=== PATIENT | female | born 1965 | race Caucasian/White ===

== ENCOUNTER 2016-09-10 18:49 | Emergency (ER) | payer OTHER ==
[~2016-09-10 18:49] MED LIST: FOLI5CAP PO; METH2.5 PO; MMW SWISH-SPIT; NAPR220T9 PO
[2016-09-10 19:02] VITALS: BP 124/82; PULSE 108; RESP 20; TEMP 98.8; O2SAT 97
[2016-09-10] MEDS ORDERED: METH2.5T PO (19:15)
[2016-09-10] MEDS ORDERED: FOLI5CAP PO (19:15)
[2016-09-10] MEDS ORDERED: NAPR250T PO (19:15)
--- NOTE | 2016-09-10 19:24 | PD ---
HPI Chief Complaint: Musculoskeletal Complaint Time Seen by Provider: 19:24 Travel History International Travel<30 days: No Contact w/Intl Traveler<30days: No Traveled to known affect area: No History of Present Illness HPI 51-year-old female presents the emergency Department with right knee pain, effusion, and "giving out" which has been progressive over the last several days. Patient denies any specific injury. Patient has a history of arthroscopy to that same knee approximately 13 years ago which he can't remember exactly why. Patient has a history of rheumatoid arthritis for which she takes methotrexate and Naprosyn. Patient denies numbness, tingling, or weakness in the right lower extremity. Patient states her pain is when at rest 4/10 but when walking 8-9/10. Her bigger concern is that it is giving out cannot trust it. Patient has allergies to Sabina, codeine, erythromycin, hydrocodone, and latex. PFSH Past Medical History Arthritis: Yes (RA) ?: Not Ovarian Cysts: Yes Past Surgical History Cholecystectomy: Yes Other Surgery: Yes (ovary removed) Social History Alcohol Use: No Tobacco Use: No Substance Use: No Allergies-Medications (Allergen,Severity, Reaction): Coded Allergies: Sabina (Verified Allergy, Mild, Rash, 09/10/16) Codeine (Verified Allergy, Mild, Rash, 09/10/16) Erythromycin (Verified Allergy, Mild, Rash, 09/10/16) Hydrocodone (Verified Allergy, Mild, Rash, 09/10/16) Latex (Verified Allergy, Mild, Rash, 09/10/16) Reported Meds & Prescriptions Reported Meds & Active Scripts Active Reported Folic Acid 5 Mg Cap 5 Mg PO DAILY Naproxen 250 Mg Tab 250 Mg PO BID Methotrexate 2.5 Mg Tab Unknown Dose PO Q7D Review of Systems Except as stated in HPI: all other systems reviewed are Neg General / Constitutional: No: Fever Eyes: No: Visual changes HENT: No: Headaches Cardiovascular: No: Chest Pain or Discomfort Respiratory: No: Shortness of Breath Gastrointestinal: No: Abdominal Pain Genitourinary: No: Dysuria Musculoskeletal: Positive: Arthralgias, Limited ROM, Pain (see history of present illness) Skin: No Rash Neurologic: No: Weakness Psychiatric: No: Depression Endocrine: No: Polydipsia Hematologic/Lymphatic: No: Easy Bruising Physical Exam Narrative GENERAL: Patient is a moderately obese female in no acute distress. SKIN: Warm and dry. Normal color. Normal turgor. HEAD: Atraumatic. Normocephalic. EYES: Pupils equal and round. No scleral icterus. No injection or drainage. ENT: No nasal bleeding or discharge. Mucous membranes pink and moist. Airways patent. NECK: Trachea midline. No JVD. Supple and nontender. CARDIOVASCULAR: Regular rate and rhythm. RESPIRATORY: No accessory muscle use. Clear to auscultation. Breath sounds equal bilaterally. . MUSCULOSKELETAL: Extremities without clubbing, cyanosis, or edema. No obvious deformities. Patient has tenderness with palpation along the anterior patella, extending down into the patellar tendon with palpable crepitus with flexion and extension of the knee. Patient has mild to moderate effusion noted. She does not seem to have significant laxity. Drawer test is negative. Elizabeth's is not able to be performed secondary to patient's discomfort. NEUROLOGICAL: Awake and alert. No obvious cranial nerve deficits. Motor grossly within normal limits. Five out of 5 muscle strength in the arms and legs. Normal speech. PSYCHIATRIC: Appropriate mood and affect; insight and judgment normal. Data Data Last Documented VS Vital Signs Date Time Temp Pulse Resp B/P Pulse Ox O2 Delivery O2 Flow Rate FiO2 09/10/16 19:02 98.8 108 20 124/82 97 Orders Tramadol (Ultram) (09/10/16 19:30) Splint Or Brace Apply/Monitor (09/10/16 19:26) Crutches (09/10/16 19:26) MDM Medical Decision Making Medical Screen Exam Complete: Yes Emergency Medical Condition: Yes Differential Diagnosis Right knee effusion. Possible cartilage tear. Right knee instability. Narrative Course Patient is felt to be medically stable at time of exam. Radiographic imaging not felt necessary based on the patient's history and physical. Patient is given tramadol 50 mg by mouth now. Patient is placed in a knee immobilizer and crutches. Patient will continue her methotrexate and Naprosyn 500 mg twice a day. Patient is to ice the area as much as possible and follow-up with orthopedist for further evaluation and treatment. Patient is given a prescription for tramadol 50 mg one every 6 hours when necessary pain #20. Patient can return to emergency Department with worsening symptoms if necessary. Diagnosis Primary Impression: Prepatellar effusion of right knee Referrals: Orthopedist call for appointment Patient Instructions: Crutch Instructions (ED), General Instructions, Knee Immobilizer (ED) Additional Instructions: Radiographic imaging not felt necessary based on the patient's history and physical. Patient is given tramadol 50 mg by mouth now. Patient is placed in a knee immobilizer and crutches. Patient will continue her methotrexate and Naprosyn 500 mg twice a day. Patient is to ice the area as much as possible and follow-up with orthopedist for further evaluation and treatment. Patient is given a prescription for tramadol 50 mg one every 6 hours when necessary pain #20. Patient can return to emergency Department with worsening symptoms if necessary. Med/Other Pt SpecificInfo: Prescription(s) given Disposition: 01 DISCHARGE HOME Condition: Stable Duc Pappas Sep 10, 2016 19:24
[2016-09-10] MEDS ORDERED: traMADol HCL 50 MG TAB PO ONE (19:30)
[2016-09-10] MEDS ORDERED: TRAM50TA PO (19:36)
[2016-09-10] MEDS ORDERED: NAPR500 PO (19:36)
== END 2016-09-10 20:26 | disposition home or self-care (01) ==
LOC: PHEFT 18:49
DX: M25.461 Effusion, right knee (principal)
CPT/HCPCS: 99283; E0113; L1830

== ENCOUNTER 2016-12-07 22:00 | Emergency (ER) | payer OTHER ==
[~2016-12-07] VITALS: Ht 172.7 cm; Wt 143.2 kg
[~2016-12-07 22:00] MED LIST changes: -METH2.5 PO; +METH2.5T PO; -MMW SWISH-SPIT; -NAPR220T9 PO; +NAPR250T PO; +NAPR500 PO; +TRAM50TA PO
[2016-12-07 22:03] VITALS: BP 131/80; PULSE 97; RESP 18; TEMP 98.6; O2SAT 97
[2016-12-07] MEDS ORDERED: BACT800T5 PO (22:21)
[2016-12-07] MEDS ORDERED: LOTR15T TOPICAL (22:21)
--- NOTE | 2016-12-07 22:21 | PD ---
HPI Chief Complaint: Skin Problem Time Seen by Provider: 22:11 Travel History International Travel<30 days: No Contact w/Intl Traveler<30days: No Traveled to known affect area: No History of Present Illness HPI 51-year-old female complains of painful rash on lower abdomen. Patient states that she started having symptoms for the past 2 days. Patient denies any fever chills. Patient denies any injury. PFSH Past Medical History Arthritis: Yes (RA) ?: Not Ovarian Cysts: Yes Past Surgical History Cholecystectomy: Yes Other Surgery: Yes (ovary removed) Social History Alcohol Use: No Tobacco Use: No Substance Use: No Allergies-Medications (Allergen,Severity, Reaction): Coded Allergies: Sabina (Verified Allergy, Mild, Rash, 12/07/16) Codeine (Verified Allergy, Mild, Rash, 12/07/16) Erythromycin (Verified Allergy, Mild, Rash, 12/07/16) Hydrocodone (Verified Allergy, Mild, Rash, 12/07/16) Latex (Verified Allergy, Mild, Rash, 12/07/16) Reported Meds & Prescriptions Reported Meds & Active Scripts Active Bactrim DS (Sulfamethoxazole-Trimethoprim) 800-160 Mg Tab 1 Tab PO BID Lotrisone Topical (Betamethasone/Clotrimazole) 1-0.05% Cream 1 Applic TOPICAL BID Tramadol (Tramadol HCl) 50 Mg Tab 50 Mg PO Q6H PRN Naprosyn (Naproxen) 500 Mg Tab 500 Mg PO BID Reported Naproxen 250 Mg Tab 250 Mg PO BID Methotrexate 2.5 Mg Tab Unknown Dose PO Q7D Review of Systems General / Constitutional: No: Fever Eyes: No: Visual changes HENT: No: Headaches Cardiovascular: No: Chest Pain or Discomfort Respiratory: No: Shortness of Breath Gastrointestinal: No: Abdominal Pain Genitourinary: No: Dysuria Musculoskeletal: No: Pain Skin: Positive Rash Neurologic: No: Weakness Psychiatric: No: Depression Endocrine: No: Polydipsia Hematologic/Lymphatic: No: Easy Bruising Physical Exam Narrative GENERAL: Well-nourished, well-developed patient. SKIN: Focused skin assessment warm/dry. Patient has erythematous irritated skin on the skin fold lower abdomen. No induration no discharge. The skin is moist. HEAD: Normocephalic. EYES: No scleral icterus. No injection or drainage. NECK: Supple, trachea midline. No JVD or lymphadenopathy. CARDIOVASCULAR: Regular rate and rhythm without murmurs, gallops, or rubs. RESPIRATORY: Breath sounds equal bilaterally. No accessory muscle use. GASTROINTESTINAL: Abdomen soft, non-tender, nondistended. MUSCULOSKELETAL: No cyanosis, or edema. BACK: Nontender without obvious deformity. No CVA tenderness. Data Data Last Documented VS Vital Signs Date Time Temp Pulse Resp B/P Pulse Ox O2 Delivery O2 Flow Rate FiO2 12/07/16 22:03 98.6 97 18 131/80 97 MDM Medical Decision Making Medical Screen Exam Complete: Yes Emergency Medical Condition: Yes Differential Diagnosis Differential diagnosis including tinea corporis, cellulitis, abscess. Narrative Course 51-year-old female with painful rash lower abdomen. Diagnosis Primary Impression: Tinea corporis Additional Impression: Cellulitis Qualified Code: L03.311 - Cellulitis of abdominal wall Patient Instructions: General Instructions Additional Instructions: Lotrisone cream twice a day as directed. Bactrim DS as directed. Follow-up with personal physician. Return if worse. Advised patient to keep the area clean and dry and separate the skin fold with cotton dry cloth. Med/Other Pt SpecificInfo: Prescription(s) given Scripts Sulfamethoxazole-Trimethoprim (Bactrim DS)800-160 Mg Tab1 Tab PO BID #20 TAB Ref 0 Prov:Declan Sauceda MD 12/07/16 Betamethasone-Clotrimazole Topical (Lotrisone Topical)1-0.05% Cream1 Applic TOPICAL BID #45 GM Ref 0 Prov:Declan Sauceda MD 12/07/16 Disposition: 01 DISCHARGE HOME Condition: Stable Declan Sauceda MD December 07, 2016 22:21
== END 2016-12-07 22:55 | disposition home or self-care (01) ==
LOC: PHEFT 22:00
DX: B35.4 Tinea corporis (principal); L03.311 Cellulitis of abdominal wall; M06.9 Rheumatoid arthritis, unspecified; Z88.5 Allergy status to narcotic agent; Z88.8 Allergy status to other drugs, medicaments and biological substances; Z79.899 Other long term (current) drug therapy
CPT/HCPCS: 99284

== ENCOUNTER 2017-03-31 22:13 | Emergency (ER) | payer OTHER ==
[~2017-03-31] VITALS: Ht 172.7 cm; Wt 147.0 kg
[~2017-03-31 22:13] MED LIST changes: +BACT800T5 PO; -FOLI5CAP PO; +LOTR15T TOPICAL
[2017-03-31 22:46] VITALS: BP 150/73; PULSE 80; RESP 18; TEMP 98.2; O2SAT 98
--- NOTE | 2017-03-31 23:58 | PD ---
HPI Chief Complaint: Injury Time Seen by Provider: 23:52 Travel History International Travel<30 days: No Contact w/Intl Traveler<30days: No Traveled to known affect area: No History of Present Illness HPI The patient is a 52-year-old female that tripped and fell this afternoon hurting her left knee, left ankle and left tibial area. Most of her pain is in the left fibula. She denies any pain in the foot. There was no loss of consciousness and this was not a syncopal spell. The patient does take methotrexate and 500 mg naproxen twice daily without any problems. PFSH Past Medical History Arthritis: Yes (RA) Ovarian Cysts: Yes Past Surgical History Cholecystectomy: Yes Other Surgery: Yes (ovary removed) Social History Alcohol Use: No Tobacco Use: No Substance Use: No Allergies-Medications (Allergen,Severity, Reaction): Coded Allergies: codeine (Verified Allergy, Mild, Rash, 04/01/17) erythromycin base (Verified Allergy, Mild, Rash, 04/01/17) fexofenadine (Verified Allergy, Mild, Rash, 04/01/17) hydrocodone (Verified Allergy, Mild, Rash, 04/01/17) latex (Verified Allergy, Mild, Rash, 04/01/17) Reported Meds & Prescriptions Reported Meds & Active Scripts Active Naproxen 500 Mg Tab 500 Mg PO BID Tramadol (Tramadol HCl) 50 Mg Tab 50 Mg PO Q4H PRN Lotrisone Topical (Betamethasone/Clotrimazole) 1-0.05% Cream 1 Applic TOPICAL BID Naprosyn (Naproxen) 500 Mg Tab 500 Mg PO BID Reported Xeljanz (Tofacitinib) 5 Mg Tab 5 Mg PO DAILY Methotrexate 2.5 Mg Tab Unknown Dose PO Q7D Review of Systems Except as stated in HPI: all other systems reviewed are Neg Physical Exam Narrative GENERAL: The patient is obese, alert, oriented 3 in slight apparent distress with her left fibular discomfort. Her vital signs show blood pressure 150/73 but otherwise normal. SKIN: Focused skin assessment warm/dry. HEAD: Atraumatic. Normocephalic. EYES: Pupils equal and round. No scleral icterus. No injection or drainage. ENT: No nasal bleeding or discharge. Mucous membranes pink and moist. NECK: Trachea midline. No JVD. CARDIOVASCULAR: Regular rate and rhythm. No murmur appreciated. RESPIRATORY: No accessory muscle use. Clear to auscultation. Breath sounds equal bilaterally. GASTROINTESTINAL: Abdomen soft, non-tender, nondistended. Hepatic and splenic margins not palpable. MUSCULOSKELETAL: No obvious deformities. No clubbing. No cyanosis. No edema. There is no proximal fifth metatarsal tenderness. There is lateral tenderness on the ankle but no medial tenderness is present on the ankle. She cannot bear weight on the ankle but this is mostly due to mid to proximal fibular discomfort. There is tenderness over the proximal fibula. No swelling is noted except for the lateral ankle. There is no joint line tenderness on the knee. Collaterals, drawer, Elizabeth all intact testing. Good capillary refill and pinprick is present distally on the left foot. NEUROLOGICAL: Awake and alert. No obvious cranial nerve deficits. Motor grossly within normal limits. Normal speech. PSYCHIATRIC: Appropriate mood and affect; insight and judgment normal. Data Data Last Documented VS Vital Signs Date Time Temp Pulse Resp B/P (MAP) Pulse Ox O2 Delivery O2 Flow Rate FiO2 03/31/17 22:46 98.2 80 18 150/73 (98) 98 Orders Orders Ankle, Complete ([id number]) (03/31/17 23:52) Knee, Complete (4vws) (03/31/17 23:52) Tibia/Fibula (Ap/Lat) (03/31/17 23:52) Tramadol (Ultram) (04/01/17 01:30) Ketorolac Inj (Toradol Inj) (04/01/17 01:30) MDM Medical Decision Making Medical Screen Exam Complete: Yes Emergency Medical Condition: Yes Medical Record Reviewed: Yes Interpretation(s) X-rays of the left ankle show calcaneal spur but no fracture. X-rays of the tibia/fibula show no fracture. X-rays of the left knee show early R [place] arthritic changes and small suprapatellar effusion but no acute fracture. Differential Diagnosis Fracture left ankle, sprain left ankle, fractured fibula, contusion lower leg, fracture knee, ligamentous disruption knee, strain left knee Narrative Course The patient has multiple contusions of her left leg/knee and a left ankle sprain. Diagnosis Primary Impression: Left ankle sprain Additional Impression: Contusion of multiple sites of left leg Additional Instructions: As we discussed, it is necessary to restrict your weightbearing is much as possible. We will write you a note to that effect. I will write prescriptions both for naproxen and tramadol. Do not drink alcohol or drive on the tramadol. Follow-up with an orthopedic physician if you have continued problems, that means problems over 10 days. Med/Other Pt SpecificInfo: Prescription(s) given Scripts Naproxen (Naproxen) 500 Mg Tab 500 MG PO BID, #60 TAB 0 Refills Prov: Brenton Anderson MD 04/01/17 Tramadol (Tramadol) 50 Mg Tab 50 MG PO Q4H Y for PAIN, #30 TAB 0 Refills Prov: Brenton Anderson MD 04/01/17 Disposition: 01 DISCHARGE HOME Condition: Stable Brenton Anderson MD Mar 31, 2017 23:58
[2017-04-01] MEDS ORDERED: TOFA5TAB PO (00:11)
--- NOTE | 2017-04-01 00:46 | RADRPT ---
EXAM DATE/TIME: 04/01/2017 00:11 [facility] COMPARISON: No previous studies available for comparison. INDICATIONS : Entire left tibia/fibula pain post fall. MEDICAL HISTORY : None. SURGICAL HISTORY : None. ENCOUNTER: Initial ACUITY: 1 day PAIN SCORE: 9/10 LOCATION: Left tibia/fibula FINDINGS: Two view examination of the left tibia demonstrates no evidence of fracture or dislocation. Bony min eralization is normal. The soft tissue structures are intact. CONCLUSION: No fracture. Ashu Dozier MD on April 01, 2017 at 0:45 Board Certified Radiologist. This report was verified electronically.
--- NOTE | 2017-04-01 00:47 | RADRPT ---
EXAM DATE/TIME: 04/01/2017 00:17 [facility] COMPARISON: No previous studies available for comparison. INDICATIONS : Left ankle pain post fall. MEDICAL HISTORY : None. SURGICAL HISTORY : None. ENCOUNTER: Initial ACUITY: 1 day PAIN SCORE: 9/10 LOCATION: Left ankle FINDINGS: Three view exam was performed of the left ankle. The bony structures are in normal alignment. No ev idence of fracture, dislocation, or soft tissue swelling. The ankle mortise is intact. No radiopaqu e foreign bodies are seen. Bony mineralization is normal. Small calcaneal spur at the plantar aponeu rosis CONCLUSION: 1. Calcaneal spur. 2. No fracture. Ashu Dozier MD on April 01, 2017 at 0:45 Board Certified Radiologist. This report was verified electronically.
--- NOTE | 2017-04-01 00:49 | RADRPT ---
EXAM DATE/TIME: 04/01/2017 00:18 [facility] COMPARISON: No previous studies available for comparison. INDICATIONS : Left knee pain post fall. MEDICAL HISTORY : None. SURGICAL HISTORY : None. ENCOUNTER: Initial ACUITY: 1 day PAIN SCORE: 9/10 LOCATION: Left knee FINDINGS: Four view examination of the left knee demonstrates no evidence of fracture or dislocation. Bony min eralization is normal. Some loss of joint space in the medial tibiofemoral compartment with marginal spurring characteristic of osteoarthritis. Small suprapatellar effusion. CONCLUSION: 1. Early osteoarthritic changes. 2. Small suprapatellar effusion with no acute fracture. Ashu Dozier MD on April 01, 2017 at 0:46 Board Certified Radiologist. This report was verified electronically.
[2017-04-01] MEDS ORDERED: NAPR500T PO (01:15)
[2017-04-01] MEDS ORDERED: TRAM50TA PO (01:15)
[2017-04-01 01:19] VITALS: BP 145/70; PULSE 76; RESP 16; TEMP 98.3; O2SAT 98
[2017-04-01] MEDS ORDERED: KETOROLAC TROMETHAMINE 60 MG/2 ML (IM) VIAL IM ONE (01:30)
[2017-04-01] MEDS ORDERED: traMADol HCL 50 MG TAB PO ONE (01:30)
[2017-04-01 01:35] VITALS: BP 145/70; TEMP 98.3
== END 2017-04-01 01:57 | disposition home or self-care (01) ==
LOC: PHED 22:13
DX: S93.402A Sprain of unspecified ligament of left ankle, initial encounter (principal); W19.XXXA Unspecified fall, initial encounter
CPT/HCPCS: 73564; 73590; 73610; 96372; 99284; J1885